=== PATIENT | male | born 1960 | race African-American/Black ===

== ENCOUNTER 2018-01-13 23:02 | Inpatient (IN) | payer MEDICARE, BC ==
[2018-01-14 00:48] LABS: ADD MAN DIFF? NO
[2018-01-14 00:50] LABS: BASO % 0 % (0-3); EOS # 0.2 x10^3/uL (0.0-0.7); EOS % 2 % (0-3); HEMATOCRIT 35.6 % (39.0-53.0); HEMOGLOBIN 11.9 g/dL (13.0-17.5); LYMPH # 1.5 x10^3/uL (1.0-4.8); LYMPH % 17 % (24-48); MEAN CORPUSCULAR HEMOGLOBIN 30 pg (25-35); MEAN CORPUSCULAR HGB CONC 34 g/dL (31-37); MEAN CORPUSCULAR VOLUME 91 fL (79-100); MONO # 0.6 x10^3/uL (0.0-1.1); MONO % 7 % (0-9); NEUT # 6.6 x10^3uL (1.8-7.7); NEUT % 74 % (31-73); PLATELET COUNT 316 x10^3/uL (140-400); RED BLOOD COUNT 3.94 x10^6/uL (4.30-5.70); RED CELL DISTRIBUTION WIDTH 13.7 % (11.5-14.5); WHITE BLOOD COUNT 8.9 x10^3/uL (4.0-11.0)
[2018-01-14 00:58] LABS: ANION GAP 9 (6-14); BLOOD UREA NITROGEN 15 mg/dL (8-26); BUN/CREATININE RATIO 19 (6-20); CALCIUM 8.6 mg/dL (8.5-10.1); CARBON DIOXIDE 29 mmol/L (21-32); CHLORIDE 107 mmol/L (98-107); CREATININE 0.8 mg/dL (0.7-1.3); GFR 119.7; GLUCOSE 141 mg/dL (70-99); POTASSIUM 3.7 mmol/L (3.5-5.1); SODIUM 145 mmol/L (136-145)
[2018-01-14] MEDS: fentaNYL PF VIAL 100 MCG/2 ML VIAL IV ×4 (01:01→15:36)
[2018-01-14 01:04] LABS: ALBUMIN 3.3 g/dL (3.4-5.0); ALBUMIN/GLOBULIN RATIO 0.9 (1.0-1.7); ALK PHOS 71 U/L (46-116); ALT (SGPT) 35 U/L (16-63); AST (SGOT) 24 U/L (15-37); TOTAL BILIRUBIN 0.4 mg/dL (0.2-1.0); TOTAL PROTEIN 6.8 g/dL (6.4-8.2)
[2018-01-14] MEDS ORDERED: ONDANSETRON PF 4 MG/2 ML VIAL. IV ×2 (01:30→10:45)
[2018-01-14 02:02] LABS: BILIRUBIN,URINE NEGATIVE (NEG); CLARITY,URINE CLEAR; COLOR,URINE YELLOW; GLUCOSE,URINE NEGATIVE (NEG); NITRITE,URINE NEGATIVE (NEG); PROTEIN,URINE NEGATIVE (NEG-TRACE); UROBILINOGEN,URINE 0.2 mg/dL (0.2 mg/dL)
[2018-01-14 02:14] LABS: BACTERIA,URINE 0 /HPF (0-FEW); RBC,URINE OCC /HPF (0-2); SQUAMOUS EPITHELIAL CELL,UR OCC /LPF; WBC,URINE OCC /HPF (0-4)
[2018-01-14] MEDS ORDERED: ACETAMINOPHEN 325 MG TABLET. PO (10:45)
[2018-01-14] MEDS ORDERED: MORPHINE SULFATE 4 MG/ML DISP.SYRIN. IV (10:45)
[2018-01-14] MEDS ORDERED: hydrALAZINE 20 MG/ML VIAL. IVP (10:45)
[2018-01-14] MEDS: LEVOTHYROXINE 175 MCG TABLET PO (12:34)
[2018-01-14] MEDS: LISINOPRIL 20 MG TABLET PO (12:34)
[2018-01-14] MEDS: hydroCHLOROthiazide 25 MG TABLET PO (12:34)
[2018-01-14] MEDS: NAPROXEN 500 MG TABLET PO (12:35)
[2018-01-14] MEDS: CYCLOBENZAPRINE 10 MG TABLET. PO ×2 (15:26→21:40)
[2018-01-14] MEDS: traMADol 50 MG TABLET PO (15:26)
[2018-01-14] MEDS: methylPREDNISolone 4 MG TABLET. PO ×3 (18:14→21:40)
[2018-01-14] MEDS: ENOXAPARIN 40 MG/0.4 ML SYRINGE. SQ (21:41)
[2018-01-15] MEDS: oxyCODONE/APAP 5/325 1 TAB TABLET PO ×4 (00:40→21:03)
[2018-01-15 05:31] LABS: HEMATOCRIT 39.4 % (39.0-53.0); HEMOGLOBIN 13.1 g/dL (13.0-17.5); RED BLOOD COUNT 4.33 x10^6/uL (4.30-5.70); WHITE BLOOD COUNT 7.4 x10^3/uL (4.0-11.0)
[2018-01-15 05:32] LABS: BASO % 0 % (0-3); EOS % 0 % (0-3); LYMPH # 0.8 x10^3/uL (1.0-4.8); LYMPH % 11 % (24-48); MEAN CORPUSCULAR HEMOGLOBIN 30 pg (25-35); MEAN CORPUSCULAR HGB CONC 33 g/dL (31-37); MEAN CORPUSCULAR VOLUME 91 fL (79-100); MONO # 0.1 x10^3/uL (0.0-1.1); MONO % 2 % (0-9); NEUT # 6.5 x10^3uL (1.8-7.7); NEUT % 87 % (31-73); PLATELET COUNT 343 x10^3/uL (140-400)
[2018-01-15 05:52] LABS: ANION GAP 9 (6-14); BLOOD UREA NITROGEN 13 mg/dL (8-26); CALCIUM 9.6 mg/dL (8.5-10.1); CARBON DIOXIDE 29 mmol/L (21-32); CHLORIDE 104 mmol/L (98-107); CREATININE 0.8 mg/dL (0.7-1.3); GFR 119.7; GLUCOSE 141 mg/dL (70-99); POTASSIUM 4.9 mmol/L (3.5-5.1); SODIUM 142 mmol/L (136-145)
[2018-01-15 06:03] LABS: ADD MAN DIFF? YES
[2018-01-15] MEDS: PANTOPRAZOLE 40 MG TABLET.DR. PO (06:36)
[2018-01-15] MEDS: LEVOTHYROXINE 175 MCG TABLET PO (06:36)
[2018-01-15] MEDS: methylPREDNISolone 4 MG TABLET. PO ×4 (08:36→21:03)
[2018-01-15] MEDS: hydroCHLOROthiazide 25 MG TABLET PO (08:36)
[2018-01-15] MEDS: CYCLOBENZAPRINE 10 MG TABLET. PO ×3 (08:36→21:02)
[2018-01-15] MEDS: LISINOPRIL 20 MG TABLET PO (08:37)
[2018-01-15 08:40] LABS: VITAMIN-B12 391 pg/mL (247-911)
[2018-01-15 12:02] LABS: % BANDS 1 % (0-9); % LYMPHS 9 % (24-48); % MONOS 2 % (0-10); % SEGS 88 % (35-66); PLT ESTIMATE ADEQUATE (ADEQUATE)
[2018-01-15] MEDS: DOCUSATE SODIUM 100 MG CAPSULE. PO (17:26)
[2018-01-16] MEDS: LEVOTHYROXINE 175 MCG TABLET PO (06:05)
[2018-01-16] MEDS ORDERED: methylPREDNISolone ACETATE 80 MG/ML VIAL. (07:45)
[2018-01-16] MEDS ORDERED: IOHEXOL 180 MG/ML 10 ML VIAL. (07:45)
[2018-01-16] MEDS ORDERED: methylPREDNISolone ACETATE 40 MG/ML VIAL. (07:45)
[2018-01-16] MEDS: PANTOPRAZOLE 40 MG TABLET.DR. PO (08:46)
[2018-01-16] MEDS: LISINOPRIL 20 MG TABLET PO (08:46)
[2018-01-16] MEDS: methylPREDNISolone 4 MG TABLET. PO ×2 (08:46→12:49)
[2018-01-16] MEDS: hydroCHLOROthiazide 25 MG TABLET PO (08:46)
[2018-01-16] MEDS: CYCLOBENZAPRINE 10 MG TABLET. PO (08:47)
[2018-01-17] MEDS ORDERED: methylPREDNISolone 4 MG TABLET. PO (09:00)
[2018-01-18] MEDS ORDERED: methylPREDNISolone 4 MG TABLET. PO (09:00)
[2018-01-19] MEDS ORDERED: methylPREDNISolone 4 MG TABLET. PO (09:00)
== END 2018-01-16 13:20 | disposition home or self-care (01) | DRG 552 ==
LOC: ER 23:02 → 5 SOUTH 01-14 00:40
PROC: 3E0U33Z Introduction of Anti-inflammatory into Joints, Percutaneous Approach (ICD-10-PCS; principal; 2018-01-14)
DX: M51.06 Intervertebral disc disorders with myelopathy, lumbar region (principal); F20.9 Schizophrenia, unspecified; M54.16 Radiculopathy, lumbar region; M48.00 Spinal stenosis, site unspecified; F32.9 Major depressive disorder, single episode, unspecified; F42.9 Obsessive-compulsive disorder, unspecified; I10 Essential (primary) hypertension; I73.9 Peripheral vascular disease, unspecified; K59.00 Constipation, unspecified; N40.0 Benign prostatic hyperplasia without lower urinary tract symptoms; Z82.49 Family history of ischemic heart disease and other diseases of the circulatory system; Z60.2 Problems related to living alone; Z88.8 Allergy status to other drugs, medicaments and biological substances
CPT/HCPCS: 36415; 62323; 72148; 73521; 73565; 80048; 80053; 81001; 82607; 85007; 85025; 93925; 96374; 97165-GO; 99285; 99285-25; J1030; J1040; J1650; J3010; J7509; Q9965

== ENCOUNTER 2018-01-21 11:58 | Inpatient (IN) | payer MEDICARE ==
[2018-01-21] MEDS ORDERED: ceFAZolin 2GM PREMIX 2 GM/50 ML BAG IV (12:00)
[2018-01-21] MEDS ORDERED: 0.9 % SODIUM CHLORIDE 10 ML DISP.SYRIN. IV (12:45)
[2018-01-21] MEDS: IV NORMAL SALINE 1000ML BAG 1,000 ML IV ×3 (12:47→21:08)
[2018-01-21 12:56] LABS: ADD MAN DIFF? NO
[2018-01-21] MEDS: ONDANSETRON PF 4 MG/2 ML VIAL. IV (12:58)
[2018-01-21] MEDS: MORPHINE SULFATE 4 MG/ML DISP.SYRIN. IV/SQ (12:59)
[2018-01-21] MEDS ORDERED: ONDANSETRON PF 4 MG/2 ML VIAL. IV (13:00)
[2018-01-21 13:14] LABS: BASO # 0.1 x10^3/uL (0.0-0.2); BASO % 1 % (0-3); EOS % 0 % (0-3); HEMATOCRIT 42.4 % (39.0-53.0); LYMPH # 2.1 x10^3/uL (1.0-4.8); LYMPH % 20 % (24-48); MEAN CORPUSCULAR HEMOGLOBIN 30 pg (25-35); MEAN CORPUSCULAR HGB CONC 33 g/dL (31-37); MEAN CORPUSCULAR VOLUME 91 fL (79-100); MONO # 0.8 x10^3/uL (0.0-1.1); MONO % 8 % (0-9); NEUT # 7.2 x10^3uL (1.8-7.7); NEUT % 71 % (31-73); PLATELET COUNT 379 x10^3/uL (140-400); RED BLOOD COUNT 4.66 x10^6/uL (4.30-5.70); RED CELL DISTRIBUTION WIDTH 14.3 % (11.5-14.5); WHITE BLOOD COUNT 10.1 x10^3/uL (4.0-11.0)
[2018-01-21 13:19] LABS: ANION GAP 9 (6-14); BLOOD UREA NITROGEN 16 mg/dL (8-26); CALCIUM 9.5 mg/dL (8.5-10.1); CARBON DIOXIDE 28 mmol/L (21-32); CHLORIDE 102 mmol/L (98-107); CREATININE 0.9 mg/dL (0.7-1.3); GFR 104.5; GLUCOSE 111 mg/dL (70-99); SODIUM 139 mmol/L (136-145)
[2018-01-21 13:27] LABS: ALBUMIN 3.6 g/dL (3.4-5.0); ALK PHOS 90 U/L (46-116); ALT (SGPT) 51 U/L (16-63); AST (SGOT) 17 U/L (15-37); DIRECT BILIRUBIN 0.1 mg/dL (0.0-0.2); PROTHROMBIN TIME PATIENT 12.6 SEC (11.7-14.0); TOTAL BILIRUBIN 0.5 mg/dL (0.2-1.0); TOTAL PROTEIN 7.8 g/dL (6.4-8.2)
[2018-01-21 14:26] LABS: BILIRUBIN,URINE NEGATIVE (NEG); CLARITY,URINE CLEAR; COLOR,URINE YELLOW; GLUCOSE,URINE NEGATIVE (NEG); NITRITE,URINE NEGATIVE (NEG); PROTEIN,URINE NEGATIVE (NEG-TRACE); UROBILINOGEN,URINE 0.2 mg/dL (0.2 mg/dL)
[2018-01-21 14:55] LABS: BACTERIA,URINE 0 /HPF (0-FEW); SQUAMOUS EPITHELIAL CELL,UR OCC /LPF
[2018-01-21] MEDS ORDERED: ZOLPIDEM 5 MG TABLET. PO (16:15)
[2018-01-21] MEDS: MORPHINE SULFATE 4 MG/ML DISP.SYRIN. IV (21:08)
[2018-01-22] MEDS: LEVOTHYROXINE 175 MCG TABLET PO (06:11)
[2018-01-22] MEDS: IV NORMAL SALINE 1000ML BAG 1,000 ML IV (06:59)
[2018-01-22] MEDS: LISINOPRIL 20 MG TABLET PO (09:01)
[2018-01-22] MEDS ORDERED: ONDANSETRON PF 4 MG/2 ML VIAL. IV ×2 (09:15→11:30)
[2018-01-22] MEDS ORDERED: ROCURONIUM 50 MG/5 ML VIAL. (09:18)
[2018-01-22] MEDS ORDERED: LIDOCAINE 1% PF 5 ML VIAL. (09:18)
[2018-01-22] MEDS ORDERED: SUCCINYLCHOLINE 200 MG/10 ML VIAL. (09:18)
[2018-01-22] MEDS ORDERED: PROPOFOL 20 ML IV (09:18)
[2018-01-22] MEDS ORDERED: fentaNYL PF VIAL 100 MCG/2 ML VIAL (09:19)
[2018-01-22] MEDS ORDERED: REMIFENTANIL 2 MG VIAL. IV (10:32)
[2018-01-22] MEDS ORDERED: PROPOFOL 50 ML IV ×2 (10:32→13:25)
[2018-01-22] MEDS: IV RINGERS,LACTATED 1000ML 1,000 ML IV (11:26)
[2018-01-22] MEDS ORDERED: HYDROmorphone 2 MG/ML VIAL IV (11:30)
[2018-01-22] MEDS ORDERED: LIDOCAINE 1% PF 2 ML VIAL. ID (11:30)
[2018-01-22] MEDS ORDERED: fentaNYL PF VIAL 100 MCG/2 ML VIAL IV (11:30)
[2018-01-22] MEDS ORDERED: DESFLURANE > 120 MINUTES IH (12:21)
[2018-01-22] MEDS ORDERED: DEXAMETHASONE SOD PHOS 20 MG/5 ML VIAL. (12:21)
[2018-01-22] MEDS ORDERED: ePHEDrine PF IN SALINE 50 MG/5 ML DISP.SYRIN IV (12:27)
[2018-01-22] MEDS: GELATIN SPONGE SIZE 100. (12:35)
[2018-01-22] MEDS: BACITRACIN 50,000 UNIT in IV NORMAL SALINE 1000ML BAG 1,000 ML IRR (12:35)
[2018-01-22] MEDS: THROMBIN TOPICAL 20,000 UNIT SPRAY.SYRN KIT TP (12:35)
[2018-01-22] MEDS: KETOROLAC 60 MG/2 ML INJ FOR OR. (12:35)
[2018-01-22] MEDS: BUPIVAC MPF-EPI 0.5%-1:200000 30 ML VIAL. INJ (12:35)
[2018-01-22] MEDS ORDERED: ONDANSETRON PF 4 MG/2 ML VIAL. (13:48)
[2018-01-22] MEDS ORDERED: HYDROcodone/APAP 7.5/325MG 1 TAB TABLET PO (14:30)
[2018-01-22] MEDS: fentaNYL PF VIAL 100 MCG/2 ML VIAL IV ×3 (14:41→18:24)
[2018-01-22] MEDS: PROCHLORPERAZINE 10 MG/2 ML VIAL. IV (14:41)
[2018-01-22] MEDS: MORPHINE SULFATE 4 MG/ML DISP.SYRIN. IV ×3 (14:50→15:32)
[2018-01-22] MEDS: HYDROcodone/APAP 7.5/325MG 1 TAB TABLET PO (22:48)
[2018-01-23] MEDS: HYDROcodone/APAP 7.5/325MG 1 TAB TABLET PO ×4 (03:19→13:05)
[2018-01-23 03:29] LABS: BASO % 0 % (0-3); EOS % 0 % (0-3); HEMOGLOBIN 12.3 g/dL (13.0-17.5); LYMPH # 1.1 x10^3/uL (1.0-4.8); LYMPH % 7 % (24-48); MEAN CORPUSCULAR HEMOGLOBIN 31 pg (25-35); MEAN CORPUSCULAR HGB CONC 33 g/dL (31-37); MEAN CORPUSCULAR VOLUME 92 fL (79-100); MONO # 1.1 x10^3/uL (0.0-1.1); MONO % 7 % (0-9); NEUT % 85 % (31-73); PLATELET COUNT 312 x10^3/uL (140-400); RED BLOOD COUNT 4.03 x10^6/uL (4.30-5.70); WHITE BLOOD COUNT 15.3 x10^3/uL (4.0-11.0)
[2018-01-23 03:43] LABS: ANION GAP 8 (6-14); BLOOD UREA NITROGEN 19 mg/dL (8-26); CALCIUM 8.9 mg/dL (8.5-10.1); CARBON DIOXIDE 28 mmol/L (21-32); CHLORIDE 103 mmol/L (98-107); CREATININE 0.9 mg/dL (0.7-1.3); GFR 104.5; GLUCOSE 155 mg/dL (70-99); POTASSIUM 4.2 mmol/L (3.5-5.1); SODIUM 139 mmol/L (136-145)
[2018-01-23 03:46] LABS: ADD MAN DIFF? YES
[2018-01-23 05:20] LABS: % BANDS 2 % (0-9); % LYMPHS 6 % (24-48); % MONOS 8 % (0-10); % SEGS 84 % (35-66); PLT ESTIMATE ADEQUATE (ADEQUATE)
[2018-01-23] MEDS: LEVOTHYROXINE 175 MCG TABLET PO (06:10)
[2018-01-23] MEDS: LISINOPRIL 20 MG TABLET PO (09:07)
== END 2018-01-23 14:14 | disposition home or self-care (01) | DRG 519 ==
LOC: 4 SOUTHEST 01-22 15:35 → ER 11:58 → 4 NORTH 12:42
PROC: 01NB0ZZ Release Lumbar Nerve, Open Approach (ICD-10-PCS; principal; 2018-01-22 11:44)
PROC: 0SB20ZZ Excision of Lumbar Vertebral Disc, Open Approach (ICD-10-PCS; 2018-01-22 11:44)
PROC: 4A10X4G Monitoring of Central Nervous Electrical Activity, Intraoperative, External Approach (ICD-10-PCS; 2018-01-22 11:44)
DX: M48.061 Spinal stenosis, lumbar region without neurogenic claudication (principal); R71.0 Precipitous drop in hematocrit; F20.9 Schizophrenia, unspecified; E03.9 Hypothyroidism, unspecified; M54.16 Radiculopathy, lumbar region; F42.9 Obsessive-compulsive disorder, unspecified; G47.00 Insomnia, unspecified; G89.29 Other chronic pain; I10 Essential (primary) hypertension; F32.9 Major depressive disorder, single episode, unspecified; R29.6 Repeated falls; R32 Unspecified urinary incontinence; Z82.49 Family history of ischemic heart disease and other diseases of the circulatory system
CPT/HCPCS: 36415; 71045; 76000; 80048; 80076; 81001; 85007; 85025; 85610; 88304; 88311; 93005; 96361; 96374; 96375; 97116-GP; 97162-GP; 97530-GP; 99285; 99285-25; G8978-CI-GP; G8979-CI-GP; G8980-CI-GP; J0330; J0690; J0780; J1100; J1885; J2270; J2405; J2704; J3010; J3490; J7030; J7120

== ENCOUNTER 2018-08-03 18:19 | Emergency (ER) | payer MEDICARE ==
[~2018-08-03] VITALS: Ht 180.3 cm; Wt 77.1 kg
[~2018-08-03 18:19] MED LIST: CYCL10TA2 PO; LEVO175T5 PO; LISI1TAB7 PO; NAPR500T8 PO; OXYC1TAB7 PO
--- NOTE | 2018-08-03 19:39 | PHYS DOC ---
Past Medical History Past Medical History: Depression, Hypertension, Schizophrenia, Other Additional Past Medical Histor: OCD Past Surgical History: Tonsillectomy Additional Past Surgical Histo: VASECTOMY Alcohol Use: None Drug Use: None Adult General Chief Complaint Chief Complaint: OVERDOSE HPI HPI Patient is a 58 year old -year-old male with history of chronic back pain from back pain who presents with nausea and vomiting and increased somnolence after intentionally overdosing on trazodone. Patient is prescribed 50-100 mg of trazodone daily and took 250 mg of trazodone 2 hours prior to ED arrival. Patient states this was not a attempt to harm himself but rather he was seeking relief of his insomnia. No HI, SI, delusions paranoia or hallucinations. No other acute symptoms or complaints. [] Review of Systems Review of Systems Review symptoms as per history of present illness. All other review symptoms are negative. All other systems were reviewed and found to be within normal limits, except as documented in this note. Allergies Allergies Allergies Coded Allergies Type Severity Reaction Last Updated Verified lithium Allergy Intermediate 01/15/18 Yes risperidone Allergy Intermediate 01/15/18 Yes bupropion Allergy Mild 01/13/18 Yes amitriptyline Adverse Reaction Severe 01/21/18 Yes Physical Exam Physical Exam Constitutional: Well developed, well nourished, no acute distress, non-toxic appearance. [] HENT: Normocephalic, atraumatic, bilateral external ears normal, oropharynx moist. [] Eyes: PERRLA, EOMI, conjunctiva normal, no discharge. [] Neck: Normal range of motion. [] Cardiovascular:Heart rate regular rhythm, no murmur [] Lungs & Thorax: Bilateral breath sounds clear to auscultation [] Abdomen: Bowel sounds normal, soft, no tenderness. [] Skin: Warm, dry, no erythema, no rash. [] Back: No tenderness. [] Extremities: No tenderness, no cyanosis, no clubbing, ROM intact, no edema. [] Neurologic: Somnolent, alerts to command, normal motor function, normal sensory function, no focal deficits noted. [] Psychologic: Affect normal, judgement normal, No SI or Hl. [] Current Patient Data Vital Signs Vital Signs Date Time Temp Pulse Resp B/P (MAP) Pulse Ox O2 Delivery O2 Flow Rate FiO2 08/03/18 18:20 98.4 75 18 131/66 (87) 96 Room Air 98.4 EKG EKG [] Radiology/Procedures Radiology/Procedures [] Course & Med Decision Making Course & Med Decision Making Pertinent Labs and Imaging studies reviewed. (See chart for details) [Patient monitored in the emergency department for adverse effects to lethal trazodone overdose. Zofran given. Will monitor patient will symptoms improve and offer psychiatric assessment team screening.] Dragon Disclaimer Dragon Disclaimer This electronic medical record was generated, in whole or in part, using a voice recognition dictation system. Departure Departure Referrals: ALBINA EVANGELISTA MD (PCP) ALKA NANCE DO Aug 03, 2018 19:39
[2018-08-03 21:00] VITALS: BP 135/68
[2018-08-03 21:10] LABS: BARBITURATES NEG (NEG); BENZODIAZEPINES NEG (NEG); CANNABINOIDS NEG (NEG); COCAINE NEG (NEG); METHADONE NEG (NEG); OPIATES NEG (NEG); PHENCYCLIDINE NEG (NEG)
[2018-08-03 21:11] LABS: AMPHETAMINE/METHAMPHETAMINE NEG (NEG)
[2018-08-03] MEDS ORDERED: ONDA4TAB7 PO (21:39)
--- NOTE | 2018-08-04 01:21 | EKG ---
[facility] [address] [place] [address] Test Date: 2018-08-03 Test Time: 18:44:47 Pat Name: RADHA HAIRSTON Department: Room: Gender: M Mon[employer] Carver: : 1960 Requested By: ALKA NANCE Order Number: [id number] Reading MD: Measurements Intervals [place] Rate: 62 P: 65 VT: 164 QRS: 23 QRSD: 96 T: 50 QT: 414 QTc: 422 Interpretive Statements SINUS RHYTHM NO SPECIFIC ECG ABNORMALITIES RI6.01 No previous ECG available for comparison
== END 2018-08-03 21:50 | disposition home or self-care (01) ==
LOC: ER 18:19
DX: G89.29 Other chronic pain (principal); M54.9 Dorsalgia, unspecified; R11.2 Nausea with vomiting, unspecified; I10 Essential (primary) hypertension; Z90.89 Acquired absence of other organs; Z88.8 Allergy status to other drugs, medicaments and biological substances
CPT/HCPCS: 80307; 82962; 93005; 99285; G0479